=== PATIENT | female | born 1970 | race African-American/Black ===

== ENCOUNTER 2019-01-04 06:37 | Day surgery (SDC) | payer BC, OTHER ==
[~2019-01-04] VITALS: Ht 162.6 cm; Wt 105.8 kg
[2019-01-04] VITALS (8 sets, daily range): BP systolic 98–124; BP diastolic 58–75; PULSE 82–102; RESP 13–18; Ht 162.6 cm; Wt 105.8 kg
--- NOTE | 2019-01-04 06:53 | PREAC ---
Date/Time of Note Date/Time of Note DATE: 01/04/19 TIME: 06:52 Anesthesia Eval and Record Evaluation Time Pre-Procedure Interview DATE: 01/04/19 TIME: 06:52 Age 48 Sex female NPO: 8 hrs Preoperative diagnosis right 5th MCP mass Planned procedure excision RIGHT 5th MCP mass Past Medical History Past Medical History: Includes Cardio: Dyslipidemia Pulm: Other (sarcoidosis, symptoms induced by weather changes ) Musculoskeletal: Other (gout) Hepatic: Other (beer daily last drank 1 week ago ) GI: GERD (well controlled), Obesity Psych: Anxiety Surgery & Anesthesia Issues No known issue Meds Anticoagulation: No Beta Pablo within 24 hr: No Reason Beta Pablo not given: Pt. not on B-Pablo Meds reviewed: Yes Allergies Coded Allergies: No Known Drug Allergies (Verified Allergy, Unknown, 12/31/18) Allergies Reviewed: Yes Labs/Studies Labs Reviewed: Reviewed by anesthesiologist test: Negative (serum) Studies: ECG (NSR ), CXR Pre-procedure Exam Airway: Adequate mouth opening, Adequate thyromental dist Mallampati: Mallampati II Teeth: Normal Lung: Normal Heart: Normal ASA Physical Status ASA physical status: 2 Emergency: None Planned Anesthetic General/MAC: LMA Planned Pain Management Parenteral pain med, Local by surgeon Pre-operative Attestations Prior to commencing anesthesia and surgery, the patient was re-evaluated, there was verification of: *The patient's identity *The results of appropriate recent lab work and preoperative vital signs *The above evaluation not changing prior to induction *Anesthetic plan, risk benefits, alternative and complications discussed with patient/family; questions answered; patient/family understands, accepts and wishes to proceed. ELIAZAR KIRK Jan 04, 2019 06:53
[2019-01-04] MEDS ORDERED: LACTATED RINGER'S 1,000 ML IV SCH (07:00)
[2019-01-04] MEDS ORDERED: MIDAZOLAM 1 MG/ML 2 ML INJ ONE (07:07)
[2019-01-04] MEDS ORDERED: LIDOCAINE 2% (SDV) 5 ML INJ ONE (07:07)
[2019-01-04] MEDS ORDERED: FENTAnyl 50 MCG/ML VIAL ONE (07:07)
[2019-01-04] MEDS ORDERED: PROPOFOL 20 ML ONE (07:07)
[2019-01-04] MEDS ORDERED: CLINDAMYCIN 900 MG/D5W (PMX) 50 ML IVPB ONE (07:07)
[2019-01-04] MEDS ORDERED: FENTAnyl 50 MCG/ML VIAL IV PRN ×3 (07:30)
[2019-01-04] MEDS ORDERED: ALBUTEROL 0.083% (NEB) 2.5 MG/3 ML AMP HHN PRN (07:30)
[2019-01-04] MEDS ORDERED: LABETALOL HCL 20MG INJ IV PRN (07:30)
[2019-01-04] MEDS ORDERED: ONDANSETRON 4 MG INJ IV PRN (07:30)
[2019-01-04] MEDS ORDERED: MEPERIDINE 25 MG INJ IV PRN (07:30)
[2019-01-04] MEDS ORDERED: OXYCODONE/ACETAMINOPHEN (5/325) TAB PO PRN ×2 (07:30)
[2019-01-04] MEDS ORDERED: ALLO300T2 PO (07:36)
[2019-01-04] MEDS ORDERED: QUET400T PO (07:36)
[2019-01-04] MEDS ORDERED: LORA-186 PO (07:36)
[2019-01-04] MEDS ORDERED: BUPR300T48 PO (07:36)
[2019-01-04] MEDS ORDERED: LURA80TA PO (07:36)
[2019-01-04] MEDS ORDERED: ATOR20TA38 PO (07:36)
[2019-01-04] MEDS ORDERED: LIDOCAINE 1%/EPI 30 ML INJ ONE (10:25)
--- NOTE | 2019-01-04 10:29 | HPN ---
Date/Time of Note Date/Time of Note DATE: 01/04/19 TIME: 10:29 Interval H&P Admission Note Pt. seen H&P reviewed: No system changes JUAN HINSON MD Jan 04, 2019 10:29
--- NOTE | 2019-01-04 11:05 | SIPON ---
Date/Time of Note Date/Time of Note DATE: 01/04/19 TIME: 11:03 Operative Report Preoperative Diagnosis mass dorsum right hand Postoperative Diagnosis same solid white mass Operation/Procedure Performed excisional biopsy Surgeon heladio accounting administrative assistant none Anesthesia: MAC Estimated blood loss: minimal Transfusion Required none Specimen mass to path Grafts/Implants none Complications none JUAN HINSON MD Jan 04, 2019 11:05
--- NOTE | 2019-01-04 12:20 | OPR ---
DATE OF OPERATION: 01/04/2019 AGE: 48. SURGEON: Juan Anne MD CHEMIST WATER PURIFICATION: Staff. PRIMER INSERTING MACHINE ADJUSTER: Jason Mays CRNA ANESTHESIA: Sedation by the anesthesiologist, local anesthetic by the surgeon. PREOPERATIVE DIAGNOSIS: Mass, dorsum right hand, overlying little finger metacarpal. POSTOPERATIVE DIAGNOSIS: Mass, dorsum right hand, overlying little finger metacarpal. PROCEDURE: Excisional biopsy. MASS APPEARANCE: Solid, white, glistening, round mass tumor, benign in appearance. SURGICAL PAUSE: I examined the patient in the preop holding area. With a marking pen, I brennon in the planned surgical incision. I showed the planned surgical incision to the patient. She confirmed the operative procedure and plan. The pathology was self-evident. It was a great big lump on the back of the right hand. INFORMED CONSENT: At the time we scheduled the operative procedure, we talked to the patient about the risks and the hazards of surgery, discussing operative mortality, wound infection, nerve injury, good result, bad result, and potential complication. The only nerve at risk is the dorsal sensory branch of the ulnar nerve, and we were careful with it. DESCRIPTION OF PROCEDURE: The patient was taken to surgery, anesthetized. A sterile prep and drape was performed. The hand was exsanguinated with elevation. A tourniquet was inflated to 250 mmHg. A longitudinal incision was made over the mass. It was circumferentially dissected and popped out. It was about 2 cm long, about 1.5 cm thick, and had the shape of a hair, of a peanut. The whole mass was sent to the lab. The wound was closed with interrupted Vicryl Rapide suture. A bulky dressing applied. The operating time was maybe 10 to 12 minutes. FOLLOWUP: Will be in our office in a week. DISCHARGE MEDICATIONS: 1. Ibuprofen. 2. Keflex. Dictated By: JUAN HOLT/NTS Conf#: [id number] DID#: [id number] MTDD
--- NOTE | 2019-01-04 14:16 | PAC ---
Date/Time of Note Date/Time of Note DATE: 01/04/19 TIME: 14:16 Post-Anesthesia Notes Post-Anesthesia Note Last documented vital signs Vital Signs Date Temp Pulse Resp B/P (MAP) Pulse Ox O2 O2 Flow FiO2 Time Delivery Rate 01/04/19 98.0 12:13 01/04/19 18 109/62 99 Room Air 11:40 (78) 01/04/19 82 11:32 Activity: WNL Respiratory function: WNL Cardiovascular function: WNL Mental status: Baseline Pain reasonably controlled: Yes Hydration appropriate: Yes Nausea/Vomiting absent: Yes ELIAZAR KIRK Jan 04, 2019 14:16
== END 2019-01-04 12:20 | disposition home or self-care (01) ==
LOC: SDS 06:37
PROVIDERS: ATTEND Orthopaedic Surgery Hand Surgery
DX: D36.12 Benign neoplasm of peripheral nerves and autonomic nervous system, upper limb, including shoulder (principal)
CPT/HCPCS: 26111; 71045; 84703; 88307; J2250; J3010; Z7512; Z7610; 88342